=== PATIENT | female | born 1950 | race Two or more races ===

== ENCOUNTER 2019-07-29 15:01 | Emergency (ER) | payer MEDICARE ==
[2019-07-29 15:30] LABS: VENOUS BLOOD BASE EXCESS 1.6 mmol/L; VENOUS BLOOD PH 7.43 (7.30-7.42)
[2019-07-29 15:34] LABS: ABSOLUTE BASOPHILS # (AUTO) 0.1 10^3/uL (0.0-0.2); ABSOLUTE EOSINOPHILS # (AUTO) 0.1 10^3/uL (0.0-0.6); ABSOLUTE LYMPHOCYTES (AUTO) 2.5 10^3/uL (0.5-4.7); ABSOLUTE MONOCYTES (AUTO) 0.6 10^3/uL (0.1-1.4); BASOPHILS % (AUTO) 0.6 % (0-2); HEMATOCRIT 38.2 % (36.0-47.0); HEMOGLOBIN 13.1 g/dL (12.0-15.5); LYMPHOCYTES % (AUTO) 22.3 % (13-45); MEAN CORPUSCULAR HEMOGLOBIN 28.8 pg (27.0-33.4); MEAN CORPUSCULAR HGB CONC 34.3 g/dL (32.0-36.0); MEAN CORPUSCULAR VOLUME 84 fl (80-97); MONOCYTES % (AUTO) 5.4 % (3-13); PLATELET COUNT 415 10^3/uL (150-450); RED BLOOD COUNT 4.55 10^6/uL (3.72-5.28); RED CELL DISTRIBUTION WIDTH 13.8 % (11.5-14.0); SEGMENTED NEUTROPHILS % (AUTO) 70.7 % (42-78); TOTAL CELLS COUNTED % (AUTO) 100 %; WHITE BLOOD COUNT 11.3 10^3/uL (4.0-10.5)
[2019-07-29 15:47] LABS: ALBUMIN 4.3 g/dL (3.5-5.0); ALKALINE PHOSPHATASE 89 U/L (38-126); ANION GAP 9 (5-19); ASPARTATE AMINO TRANSFERASE 26 U/L (14-36); BILIRUBIN,DIRECT 0.5 mg/dL (0.0-0.4); BLOOD UREA NITROGEN 13 mg/dL (7-20); CALCIUM 9.8 mg/dL (8.4-10.2); CARBON DIOXIDE 27 mmol/L (22-30); CHLORIDE 103 mmol/L (98-107); GLUCOSE 154 mg/dL (75-110); POTASSIUM 3.7 mmol/L (3.6-5.0); TOTAL PROTEIN 7.2 g/dL (6.3-8.2)
[2019-07-29 16:13] VITALS: BP 145/83
[2019-07-29] MEDS ORDERED: ALBUTEROL SULFATE 0.083% NEB 2.5 MG/3 ML AMPUL NEB ONE ×2 (16:17→16:31)
[2019-07-29] MEDS ORDERED: IPRATROPIUM/ALBUTEROL 0.5-2.5 MG/3 ML AMPUL NEB ONE ×2 (16:17→16:26)
[2019-07-29] MEDS ORDERED: BENZONATATE 100 MG CAPSULE PO ONE ×2 (16:18→16:30)
--- NOTE | 2019-07-29 16:20 | ER Document Report ---
ED General - General Chief Complaint: Respiratory Distress Stated Complaint: DIFFICULTY BREATHING Time Seen by Provider: 07/29/19 15:53 TRAVEL OUTSIDE OF THE [place] IN LAST 30 DAYS: No - HPI Notes: Patient is a 69-year-old female that presents to the emergency department for chief complaint of cough. Patient states she has had a cough for the last 3 weeks since returning home from visiting family in [place]. She states her family that she was visiting were heavy smokers and that has exacerbated her asthma. Patient states she is using a DuoNeb twice daily and albuterol rescue inhaler 3 times daily which gives her short-term symptomatic relief. She reports productive sputum at night but denies any significant amount of sputum during the day. She denies any associated fevers or chills. She states when she gets on coughing spells she feels very short of breath afterwards. She does not wear oxygen at home. She was on a short course of steroids about 2 weeks ago which she states did give her improvement but has since resolved. Patient denies any associated chest pain, palpitations, syncope, nausea/vomiting, headaches, numbness and weakness. Past Medical History: COPD Past Surgical History: Reviewed in chart Social History: Denies drug alcohol and tobacco use. Does have secondhand smoke exposure Family History: Reviewed and noncontributory for presenting illness Allergies: Reviewed, see documented allergy list. REVIEW OF SYSTEMS: CONSTITUTIONAL : No fever No chills No diaphoresis No recent illness EENT: No vision changes No congestion No sore throat CARDIOVASCULAR: No chest pain No palpitations RESPIRATORY: shortness of breath cough difficulty breathing GASTROINTESTINAL: No abdominal pain No nausea No vomiting No diarrhea GENITOURINARY: No dysuria No hematuria No difficulty urinating MUSCULOSKELETAL: No back pain No leg pain No arm pain SKIN: No rashes No lesions LYMPHATIC: No swollen, enlarged glands. NEUROLOGICAL: No lightheadedness No headache No weakness No paresthesias PSYCHIATRIC: No anxiety No depression PHYSICAL EXAMINATION: Vital signs reviewed, nursing noted reviewed. GENERAL: Well-appearing, obese and in no acute distress. HEAD: Atraumatic, normocephalic. EYES: Eyes appear normal, extraocular movements intact, sclera anicteric, conjunctiva are normal. ENT: nares patent, oropharynx clear without exudates. Moist mucous membranes. NECK: Normal range of motion, supple without lymphadenopathy LUNGS: Breath sounds significantly diminished to auscultation bilaterally and equal. No wheezes rales or rhonchi. No tachypnea or accessory muscle use. Able to speak in full sentences. HEART: Regular rate and rhythm without murmurs ABDOMEN: Soft, nontender, normoactive bowel sounds. No rebound, guarding, or rigidity. No masses appreciated. EXTREMITIES: Nontender, good range of motion, no pitting or edema. NEUROLOGICAL: No focal neurological deficits. Moves all extremities sponta neously Motor and sensory grossly intact on exam. PSYCH: Normal mood, normal affect. SKIN: Warm, Dry, normal turgor, no rashes or lesions noted on exposed skin - Related Data Allergies/Adverse Reactions: No Known Allergies Allergy (Unverified 07/29/19 16:39) Past Medical History - Social History Smoking Status: Never Smoker Family History: Reviewed & Not Pertinent Patient has suicidal ideation: No Patient has homicidal ideation: No Physical Exam - Vital signs Vitals: Temp Resp BP Pulse Ox 99.8 F 19 159/90 H 94 07/29/19 15:06 07/29/19 15:06 07/29/19 15:06 07/29/19 15:06 Course - Re-evaluation Re-evalutation: 07/29/19 16:20 Vitals reviewed. Nursing notes reviewed. Patient has decreased air movement to auscultation of her lungs. She was ordered Solu-Medrol DuoNeb and albuterol for symptom medic management. She is currently oxygenating at 94% on room air and in no respiratory distress. 07/29/19 16:52 Patient's work-up today is unremarkable. She has hypoinflation on her x-ray but no apparent pneumonia. Patient symptoms have been ongoing for prolonged period of time and I feel are likely related to allergies and bronchitis. Antibiotics not currently indicated. Patient has previously done a dose of prednisone which she states gave her relief but the symptoms return after taking it. She will be started on a Medrol Dosepak for a slower prolonged taper. Patient will continue using her albuterol at home. She will also be given prescription for Tessalon Perles for her cough. She did start taking Zyrtec yesterday which I encouraged her to continue taking. Patient is otherwise well-appearing and still oxygenating on room air at 95%. She will be discharged home with return precautions Laboratory 07/29/19 07/29/19 07/29/19 15:15 15:15 15:15 WBC 11.3 H RBC 4.55 Hgb 13.1 Hct 38.2 MCV 84 MCH 28.8 MCHC 34.3 RDW 13.8 Plt Count 415 Lymph % (Auto) 22.3 Richardson % (Auto) 5.4 Eos % (Auto) 1.0 Baso % (Auto) 0.6 Absolute Neuts (auto) 8.0 Absolute Lymphs (auto) 2.5 Absolute Monos (auto) 0.6 Absolute Eos (auto) 0.1 Absolute Basos (auto) 0.1 Seg Neutrophils % 70.7 VBG pH VBG pCO2 VBG HCO3 VBG Base Excess Sodium 139.3 Potassium 3.7 Chloride 103 Carbon Dioxide 27 Anion Gap 9 BUN 13 Creatinine 0.65 Est GFR ( Amer) > 60 Est GFR (MDRD) Non-Af > 60 Glucose 154 H Calcium 9.8 Total Bilirubin 1.0 Direct Bilirubin 0.5 H Neonat Total Bilirubin Not Reportable Neonat Direct Bilirubin Not Reportable Neonat Indirect Bili Not Reportable AST 26 ALT 31 Alkaline Phosphatase 89 Troponin I < 0.012 Total Protein 7.2 Albumin 4.3 Urine Color Urine Appearance Urine pH Ur Specific [place] Urine Protein Urine Glucose (UA) Urine Ketones Urine Blood Urine Nitrite Urine Bilirubin Urine Urobilinogen Ur Leukocyte Esterase Urine WBC (Auto) Urine RBC (Auto) Urine Bacteria (Auto) Squamous Epi Cells Auto Urine Mucus (Auto) Urine Ascorbic Acid 07/29/19 07/29/19 15:15 15:51 WBC RBC Hgb Hct MCV MCH MCHC RDW Plt Count Lymph % (Auto) Richardson % (Auto) Eos % (Auto) Baso % (Auto) Absolute Neuts (auto) Absolute Lymphs (auto) Absolute Monos (auto) Absolute Eos (auto) Absolute Basos (auto) Seg Neutrophils % VBG pH 7.43 H VBG pCO2 40.0 VBG HCO3 26.0 VBG Base Excess 1.6 Sodium Potassium Chloride Carbon Dioxide Anion Gap BUN Creatinine Est GFR ( Amer) Est GFR (MDRD) Non-Af Glucose Calcium Total Bilirubin Direct Bilirubin Neonat Total Bilirubin Neonat Direct Bilirubin Neonat Indirect Bili AST ALT Alkaline Phosphatase Troponin I Total Protein Albumin Urine Color STRAW Urine Appearance CLEAR Urine pH 7.0 Ur Specific [place] 1.004 Urine Protein NEGATIVE Urine Glucose (UA) NEGATIVE Urine Ketones NEGATIVE Urine Blood SMALL H Urine Nitrite NEGATIVE Urine Bilirubin NEGATIVE Urine Urobilinogen NEGATIVE Ur Leukocyte Esterase NEGATIVE Urine WBC (Auto) 1 Urine RBC (Auto) 0 Urine Bacteria (Auto) 3+ Squamous Epi Cells Auto 1 Urine Mucus (Auto) RARE Urine Ascorbic Acid NEGATIVE Chest X-Ray 07/29/19 00:00 IMPRESSION: 1. Low lung volumes limits examination. NO ACUTE RADIOGRAPHIC FINDING IN THE CHEST. - Vital Signs Vital signs: Temp Pulse Resp BP Pulse Ox 99.8 F 25 H 145/83 H 93 07/29/19 15:06 07/29/19 16:10 07/29/19 16:10 07/29/19 16:10 - Laboratory Result Diagrams: 07/29/19 15:15 07/29/19 15:15 Laboratory results interpreted by me: 07/29/19 07/29/19 07/29/19 15:15 15:15 15:15 WBC 11.3 H VBG pH 7.43 H Glucose 154 H Direct Bilirubin 0.5 H Urine Blood 07/29/19 15:51 WBC VBG pH Glucose Direct Bilirubin Urine Blood SMALL H Discharge - Discharge Clinical Impression: Bronchitis with bronchospasm Condition: Stable Disposition: HOME, SELF-CARE Instructions: Bronchitis With Bronchospasm (Wheezing) ([facility]) Additional Instructions: Please return to the emergency department if you have any worsening, or concern of your symptoms. Please return to the emergency department if you develop chest pain, difficulty breathing, severe abdominal pain, or ongoing vomiting. Please follow-up with your primary care physician in 2-3 days and any other recommended physicians. If prescribed, take all medications as directed. If you have any questions or concerns do not hesitate to return the emergency department for evaluation. Continue taking Zyrtec daily Use your albuterol inhaler or a nebulized treatment of albuterol every 4 hours Continue using your ipratropium and albuterol combination as directed Begin taking the Medrol Dosepak on 07/30/2019 Prescriptions: Benzonatate [Tessalon Perles 100 mg Capsule] 100 mg PO Q8HP PRN #40 capsule PRN Reason: Cough Methylprednisolone [Medrol Dosepack (4 mg/Tab) 21 Tab/Dosepak] 4 mg PO ASDIR PRN #21 [id number] PRN Reason: Referrals: [facility] [Provider Group] - Follow up as needed
--- NOTE | 2019-07-29 16:21 | RADIOLOGY REPORT (SQ) ---
EXAM DESCRIPTION: CHEST 2 VIEWS COMPLETED DATE/TIME: 07/29/2019 4:06 pm REASON FOR STUDY: SOB COMPARISON: None. EXAM PARAMETERS: NUMBER OF VIEWS: two views TECHNIQUE: Digital Frontal and Lateral radiographic views of the chest acquired. RADIATION DOSE: NA LIMITATIONS: none FINDINGS: LUNGS AND PLEURA: Lung volumes limits examination. No opacities, masses or pneumothorax. No pleural effusion. MEDIASTINUM AND HILAR STRUCTURES: No masses or contour abnormalities. HEART AND VASCULAR STRUCTURES: Heart normal size. No evidence for failure. BONES: No acute findings. HARDWARE: None in the chest. OTHER: No other significant finding. IMPRESSION: 1. Low lung volumes limits examination. NO ACUTE RADIOGRAPHIC FINDING IN THE CHEST. TECHNICAL DOCUMENTATION: JOB ID: [id number] [employer]- All Rights Reserved Reading location - IP/workstation name: [email or web address]
[2019-07-29 16:23] LABS: APPEARANCE,URINE CLEAR; BILIRUBIN,URINE NEGATIVE (NEGATIVE); COLOR,URINE STRAW; GLUCOSE, URINE NEGATIVE (NEGATIVE); KETONES,URINE NEGATIVE (NEGATIVE); LEUKOCYTE ESTERASE,URINE NEGATIVE (NEGATIVE); NITRITE,URINE NEGATIVE (NEGATIVE); PROTEIN,URINE NEGATIVE (NEGATIVE); URINE SPECIFIC GRAVITY 1.004; UROBILINOGEN,URINE NEGATIVE mg/dL (<2.0)
--- NOTE | 2019-07-29 23:16 | EKG REPORT ---
SEVERITY:- OTHERWISE NORMAL ECG - SINUS TACHYCARDIA BORDERLINE LEFT AXIS DEVIATION CONSIDER INFERIOR ID : Confirmed by: Madison Maurice 29-Jul-2019 23:14:45
== END 2019-07-29 17:03 | disposition home or self-care (01) ==
LOC: ER 15:01
DX: J20.9 Acute bronchitis, unspecified (principal)
CPT/HCPCS: 93005; 94640; 99283; 36415; 85025; 80053; 81001; 84484; 82803; 71046; 93010; A9270 ×3; J7620